=== PATIENT | female | born 1950 | race Asian ===

== ENCOUNTER 2017-03-19 10:57 | Day surgery (SDC) | payer OTHER ==
[2017-03-19] MEDS ORDERED: FENTAnyl 50 MCG/ML VIAL (14:13)
[2017-03-19] MEDS ORDERED: MIDAZOLAM 1 MG/ML 2 ML INJ ×2 (14:13)
== END 2017-03-19 15:20 | disposition home or self-care (01) ==
LOC: GIL 10:57
DX: Z12.11 Encounter for screening for malignant neoplasm of colon (principal); K64.8 Other hemorrhoids; I10 Essential (primary) hypertension; E78.5 Hyperlipidemia, unspecified
CPT/HCPCS: 45378